=== PATIENT | male | born 1960 | race Caucasian/White ===

== ENCOUNTER → 2017-02-05 | Outpatient (CLI) | payer MEDICARE, MEDICAID ==
[2013-02-12 23:41] VITALS: BP 180/68
[~2017-02-05] MED LIST: ALBUTEROL1.25 MG/3 IH; AMLODIPINE10 MG PO; AMOXICILLIN 8751 TAB PO; ATROVENT I0.2 MG/1 M IH; CARDI-OMEGA1000 MG PO; CARDURA 8MG TAB8 MG PO; CINNAMON500 MG PO; CLARITIN10 MG PO; COREG12.5 MG PO; CYCLOBENZAPRINE10 MG PO; CYCLOBENZAPRINE5 M1 PO; D3PLUS1 CAP PO; FISH OIL 1000MG1 CAP PO; FLUTICASON0.05 MG/Ac NS; FUROCOT40 MG PO; HUMALOG100 U/ML SC; HYDRALAZINE HCL50 MG PO; LASIX80 MG PO; LEVEMIR100 U/ML SC; METOLAZONE5 MG PO; NASONEX SPRAY IH; NORCO 325 MG-7.1 TA1 PO; NOVOLOG 100U100 U/M1 SC; OMEPRAZOLE D/R20 MG PO; PRAVASTATIN40 MG PO; SIMVASTATIN40 MG PO; SYMBICORT1 AE3 IH; ULTRAM 50MG TAB50 MG PO; URSODIOL300 MG PO; VITAMIN B121000 MC2 PO; ZYRTEC10 MG PO; [UNRECOGNIZED DRUG - OTHER] PO
== END ==
LOC: LAB 14:52
DX: M1A.09X1 Idiopathic chronic gout, multiple sites, with tophus (tophi) (principal)

== ENCOUNTER → 2017-08-17 | Outpatient (CLI) | payer MEDICARE, MEDICAID ==
[2013-02-12 23:41] VITALS: BP 180/68
[2017-08-17 16:27] LABS: BUN/CREATININE RATIO 3.7 (6.0-26.0); CALCIUM 10.3 mg/dL (8.4-10.2); POTASSIUM 4.5 mmol/L (3.6-5.0)
== END ==
LOC: LAB 11:47
DX: L97.522 Non-pressure chronic ulcer of other part of left foot with fat layer exposed (principal); E11.621 Type 2 diabetes mellitus with foot ulcer

== ENCOUNTER → 2017-10-12 | Outpatient (CLI) | payer MEDICARE, MEDICAID ==
[2013-02-12 23:41] VITALS: BP 180/68
== END ==
LOC: RAD 15:16
DX: R10.9 Unspecified abdominal pain (principal); R22.2 Localized swelling, mass and lump, trunk; K21.9 Gastro-esophageal reflux disease without esophagitis; I25.10 Atherosclerotic heart disease of native coronary artery without angina pectoris

== ENCOUNTER → 2017-11-02 | Outpatient (CLI) | payer MEDICARE, MEDICAID ==
[2013-02-12 23:41] VITALS: BP 180/68
== END ==
LOC: LAB 10-20 12:38
DX: R56.9 Unspecified convulsions (principal)

== ENCOUNTER → 2017-11-18 | Outpatient (CLI) | payer MEDICARE, MEDICAID ==
[2013-02-12 23:41] VITALS: BP 180/68
== END ==
LOC: LAB 13:16 → RAD 13:16
DX: E11.621 Type 2 diabetes mellitus with foot ulcer (principal); L97.522 Non-pressure chronic ulcer of other part of left foot with fat layer exposed

== ENCOUNTER → 2018-01-10 | Outpatient (CLI) | payer MEDICARE, MEDICAID ==
[2013-02-12 23:41] VITALS: BP 180/68
== END ==
LOC: RAD 17:26
DX: R55 Syncope and collapse (principal)

== ENCOUNTER → 2018-01-31 | Outpatient (CLI) | payer MEDICARE, MEDICAID ==
[2013-02-12 23:41] VITALS: BP 180/68
== END ==
LOC: LAB 17:03
DX: E10.9 Type 1 diabetes mellitus without complications (principal)

== ENCOUNTER → 2018-12-23 | Outpatient (CLI) | payer MEDICARE, MEDICAID ==
[2013-02-12 23:41] VITALS: BP 180/68
== END ==
LOC: LAB 11:19
DX: M47.892 Other spondylosis, cervical region (principal); R51 Headache

== ENCOUNTER → 2019-09-19 | Outpatient (CLI) | payer MEDICARE, MEDICAID ==
[2013-02-12 23:41] VITALS: BP 180/68
== END ==
LOC: LAB 14:08
DX: E11.8 Type 2 diabetes mellitus with unspecified complications (principal)

== ENCOUNTER → 2019-10-02 | Outpatient (CLI) | payer MEDICARE, MEDICAID ==
[2013-02-12 23:41] VITALS: BP 180/68
== END ==
LOC: RAD 16:19
DX: R51 Headache (principal)